=== PATIENT | male | born 1985 | race Caucasian/White ===

== ENCOUNTER 2017-02-11 00:39 | Emergency (ER) | payer MEDICAID, OTHER ==
[~2017-02-11] VITALS: Ht 177.8 cm; Wt 128.0 kg
[2017-02-11 00:46] VITALS: Ht 177.8 cm; Wt 128.0 kg
[2017-02-11] MEDS ORDERED: IBUPROFEN 600 MG TAB PO ONE (02:00)
--- NOTE | 2017-02-11 02:09 | ERD ---
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 Patient described the pain as throbbing pain, 4/10 scale, accompanied with swelling. Patient is able to move the joint of the right hand without any restriction but has bruising on affected area. Patient took some [place] for pain with mild relief. Patient denies any numbness or tingling. Patient denies any deformity. ROS All systems reviewed and are negative except as per history of present illness. Medications Home Meds Reported Medications [none] Unknown Strength No Conflict Check 02/11/17 Allergies Allergies: Coded Allergies: No Known Allergy (Unverified , 02/11/17) PMhx/Soc Medical and Surgical Hx: pt denies Medical Hx, pt denies Surgical Hx History of Surgery: No Anesthesia Reaction: No Hx Neurological Disorder: No Hx Respiratory Disorders: No Hx Cardiac Disorders: No Hx Psychiatric Problems: No Hx Miscellaneous Medical Probl: No Hx Alcohol Use: No Hx Substance Use: No Hx Tobacco Use: No Smoking Status: Never smoker FmHx Family History: No coronary disease, No diabetes, No other Physical Exam Vitals Vital Signs Date Time Temp Pulse Resp B/P Pulse Ox O2 Delivery O2 Flow Rate FiO2 02/11/17 00:46 97.8 93 20 134/84 98 Physical Exam GENERAL: The patient is well developed and appropriate for usual state of health, in no apparent distress. CHEST: Clear to auscultation bilaterally. There are no rales, wheezes or rhonchi. HEART: Regular rate and rhythm. No murmurs, clicks, rubs or gallops. No S3 or S4. ABDOMEN: Soft, nontender and nondistended. Good bowel sounds. No rebound or guarding. No gross peritonitis. No gross organomegaly or masses. No Ambrocio sign or McBurney point tenderness. BACK: No midline or flank tenderness. EXTREMITIES: Tenderness on palpation on the dorsal aspect of the right hand. Ecchymosis noted, able to do full range of motion of the right hand without any restriction. No obvious deformity noted. Equal pulses bilaterally. Full range of motion of other the joints of the body. Grossly neurovascularly intact. NEURO: Alert and oriented. Cranial nerves 2-12 intact. Motor strength in all 4 extremities with 5/5 strength. Sensation grossly intact. Normal speech and gait. SKIN: There is no apparent rash or petechia. The skin is warm and dry. HEMATOLOGIC AND LYMPHATIC: There is no evidence of excessive bruising or lymphedema. No gross cervical, axillary, or inguinal lymphadenopathy. Results 24 hrs Current Medications Medications (Trade) Dose Ordered Sig/Jillian Route PRN Reason Start Time Stop Time Status Last Admin Dose Admin Ibuprofen (Motrin) 600 mg ONCE ONCE PO 02/11/17 02:00 02/11/17 02:01 DC 02/11/17 02:17 Patient was given medication for pain here in emergency department, after treatment, patient verbalized feeling much better. Patient's pain is improved. PROCEDURE: XR Hand. CLINICAL INDICATION: Right hand pain status post injury. TECHNIQUE: AP, oblique and lateral views of the right hand were obtained. COMPARISON: No prior studies are available for comparison. FINDINGS: Reference marker is directed towards the base of the right index finger, without evident underlying radiographic abnormality. There is normal mineralization. No acute fracture or dislocation is seen. There are no significant degenerative changes. There is no significant soft tissue swelling. IMPRESSION: No acute fracture. RPTAT: [facility] Physician Perico Date Time Electronically viewed and signed by Physician Perico on 02/11/2017 02:51 RS/ CC: PERLA MOSES STAFF THERAPIST Procedures/MDM Medical Decision Making: Patient's pain is most likely consistent with a contusion or a sprain. There is no suspicion for neurovascular compromise. Patient has intact sensation and circulation of the affected extremity. There is low suspicion for septic arthritis. Patient does not have any fever. Radiology exams of the affected area does not show any fracture or dislocation. Disposition: Home. Patient is given prescription for ibuprofen for pain, [place] for severe pain. Patient was advised to elevate the affected area and apply ice on affected area. Patient was advised that if symptoms are worse, numbness, tingling, high fever, unable to move joint, worsening symptoms, to return to emergency department immediately. Otherwise, patient is advised to follow up with the primary care doctor in 5-7 days for reevaluation of symptoms. Departure Diagnosis: Primary Impression: Contusion of right hand Encounter type: initial encounter Qualified Code: S60.221A - Contusion of right hand, initial encounter Condition: Stable Patient Instructions: Contusion, Hand Additional Instructions: Patient is given prescription for ibuprofen for pain, [place] for severe pain. Patient was advised to elevate the affected area and apply ice on affected area. Patient was advised that if symptoms are worse, numbness, tingling, high fever, unable to move joint, worsening symptoms, to return to emergency department immediately. Otherwise, patient is advised to follow up with the primary care doctor in 5-7 days for reevaluation of symptoms. PERLA MOSES NP Feb 11, 2017 02:08
--- NOTE | 2017-02-11 02:51 | RADRPT ---
PROCEDURE: XR Hand. CLINICAL INDICATION: Right hand pain status post injury. TECHNIQUE: AP, oblique and lateral views of the right hand were obtained. COMPARISON: No prior studies are available for comparison. FINDINGS: Reference marker is directed towards the base of the right index finger, without evident underlying radiographic abnormality. There is normal mineralization. No acute fracture or dislocation is seen. There are no significant degenerative changes. There is no significant soft tissue swelling. IMPRESSION: No acute fracture. RPTAT: [facility] Physician Perico Date Time Electronically viewed and signed by Physician Perico on 02/11/2017 02:51 RS/
[2017-02-11] MEDS ORDERED: IBUP-1542 PO (02:59)
[2017-02-11] MEDS ORDERED: HYDR-906 PO (02:59)
== END 2017-02-11 03:12 | disposition home or self-care (01) ==
LOC: FTE 00:39
DX: S60.221A Contusion of right hand, initial encounter (principal); W22.8XXA Striking against or struck by other objects, initial encounter; Y92.9 Unspecified place or not applicable
CPT/HCPCS: 73130; Z7502; Z7610